=== PATIENT | male | born 1965 | race Caucasian/White ===

== ENCOUNTER → 2020-10-11 | Outpatient (CLI) | payer OTHER ==
[~2020-10-11] MED LIST: ASPIRIN EC81 MG PO; ATORVASTATIN CA20 MG PO; COMBIVENT RESPIM4 GM INH; ELIQUIS2.5 MG PO; LIPITOR20 MG PO; LOPRESSOR 25 MG25 MG PO; LOSARTAN POTASS25 MG PO; METFORMIN HCL500 MG PO; NEURONTIN300 MG PO; PERCOCET 10-321 EACH PO; PULMICORT FLEX90 MCG INH; SPIRIVA HANDIH18 MCG INH; SYMBICORT 160-1 INHA INH; VITAMIN B-121000 MCG PO; ZANAFLEX2 MG PO
[2020-10-11 11:17] LABS: HEMOGLOBIN 15.1 gm/dl (14.0-17.5); RED BLOOD COUNT 4.59 M/UL (4.20-5.50); WHITE BLOOD COUNT 7.7 K/UL (4.5-11.0)
[2020-10-11 11:38] LABS: BUN/CREATININE RATIO 10 (0-10)
== END ==
LOC: EDSTATUS 10:00 → OPSV2 10:00
PROVIDERS: Orthopaedic Surgery
DX: Z01.818 Encounter for other preprocedural examination (principal); M16.12 Unilateral primary osteoarthritis, left hip
CPT/HCPCS: 71046; 80048; 85025; 87081; 93005

== ENCOUNTER → 2020-10-18 | Outpatient (CLI) | payer OTHER ==
[2020-10-18 13:21] LABS: BUN/CREATININE RATIO 10 (0-10)
== END ==
LOC: LAB 11:34
PROVIDERS: Orthopaedic Surgery
DX: Z01.812 Encounter for preprocedural laboratory examination (principal)
CPT/HCPCS: 36415; 80048; 86850; 86900; 86901

== ENCOUNTER 2020-10-19 06:03 | Inpatient (IN) | payer OTHER ==
[~2020-10-19] VITALS: Ht 182.9 cm; Wt 101.2 kg
[2020-10-19] MEDS ORDERED: METFORMIN HCL500 MG PO (06:31)
[2020-10-19] MEDS ORDERED: NEURONTIN300 MG PO (06:31)
[2020-10-19] MEDS ORDERED: LOSARTAN POTASS25 MG PO (06:32)
[2020-10-19] MEDS ORDERED: VITAMIN B-121000 MCG PO (06:34)
[2020-10-19] MEDS ORDERED: LIPITOR20 MG PO (06:35)
[2020-10-19] MEDS ORDERED: ZANAFLEX2 MG PO (06:35)
[2020-10-20 06:06] LABS: HEMOGLOBIN 10.8 gm/dl (14.0-17.5); RED BLOOD COUNT 3.22 M/UL (4.20-5.50); WHITE BLOOD COUNT 13.9 K/UL (4.5-11.0)
[2020-10-20 06:28] LABS: BUN/CREATININE RATIO 15 (0-10)
[2020-10-20] MEDS ORDERED: COMBIVENT RESPIM4 GM INH (09:03)
[2020-10-20] MEDS ORDERED: ASPIRIN EC81 MG PO (09:03)
[2020-10-20] MEDS ORDERED: SPIRIVA HANDIH18 MCG INH (09:03)
[2020-10-20] MEDS ORDERED: SYMBICORT 160-1 INHA INH (09:03)
[2020-10-20] MEDS ORDERED: ATORVASTATIN CA20 MG PO (09:03)
--- NOTE | 2020-10-20 22:17 | NUR ---
2215: PT WAS WALKED IN THE HALLWAY ON ROOM AIR WITH NO O2 TO CHECK OXYGEN LEVELS. PT WALKED APPROX. 50 FEET AND BACK AND HIS 02 LEVEL STAYED AT 93%. ONCE BACK INTO HIS BED HIS O2 CAME UP TO 95%.
[2020-10-21 06:28] LABS: HEMOGLOBIN 10.5 gm/dl (14.0-17.5); RED BLOOD COUNT 3.17 M/UL (4.20-5.50)
[2020-10-21 06:40] LABS: WHITE BLOOD COUNT 9.5 K/UL (4.5-11.0)
[2020-10-21 06:58] LABS: BUN/CREATININE RATIO 12 (0-10)
[2020-10-22 04:22] LABS: HEMOGLOBIN 10.3 gm/dl (14.0-17.5); RED BLOOD COUNT 3.08 M/UL (4.20-5.50); WHITE BLOOD COUNT 9.3 K/UL (4.5-11.0)
[2020-10-22 04:38] LABS: BUN/CREATININE RATIO 13 (0-10)
[2020-10-22] MEDS ORDERED: PULMICORT FLEX90 MCG INH (08:43)
[2020-10-22] MEDS ORDERED: LOPRESSOR 25 MG25 MG PO (08:43)
[2020-10-22] MEDS ORDERED: ELIQUIS2.5 MG PO (14:13)
[2020-10-22] MEDS ORDERED: PERCOCET 10-321 EACH PO (14:41)
== END 2020-10-22 16:11 | disposition home health service (06) | DRG 470 ==
LOC: OR 06:03 → M/S 06:03 → OR 11:15 → M/S 14:31 → OR 10-21 16:59 → M/S 10-22 16:11 → OR 10-26 14:45
PROVIDERS: ADMIT Orthopaedic Surgery
PROC: 0SRB04A Replacement of Left Hip Joint with Ceramic on Polyethylene Synthetic Substitute, Uncemented, Open Approach (ICD-10-PCS; principal; 2020-10-19 08:15)
DX: M16.12 Unilateral primary osteoarthritis, left hip (principal); M90.552 Osteonecrosis in diseases classified elsewhere, left thigh; Z79.84 Long term (current) use of oral hypoglycemic drugs; Z79.899 Other long term (current) drug therapy; I10 Essential (primary) hypertension; E78.5 Hyperlipidemia, unspecified; J44.9 Chronic obstructive pulmonary disease, unspecified; I73.9 Peripheral vascular disease, unspecified; F17.210 Nicotine dependence, cigarettes, uncomplicated; K21.9 Gastro-esophageal reflux disease without esophagitis; I25.10 Atherosclerotic heart disease of native coronary artery without angina pectoris; Z95.1 Presence of aortocoronary bypass graft; Z95.820 Peripheral vascular angioplasty status with implants and grafts; E11.51 Type 2 diabetes mellitus with diabetic peripheral angiopathy without gangrene; E87.6 Hypokalemia; D72.828 Other elevated white blood cell count; R00.0 Tachycardia, unspecified
CPT/HCPCS: 36415; 73501; 73502; 76000; 80048; 82962; 83036; 83735; 84132; 85027; 93005; 97110; 97110-GP-CQ; 97116-GP-CQ; 97162; 97166; 97530-GP-CQ; 97535; C1776; J0171; J0690; J0735; J1100; J1170; J1885; J2001; J2250; J2274; J2405; J2704; J2710; J2765; J2795; J3010; J3370; J3480; J7050; J7120